=== PATIENT | male | born 1970 | race Caucasian/White ===

== ENCOUNTER 2016-10-14 19:29 | Emergency (ER) | payer MEDICAID ==
[~2016-10-14] VITALS: Ht 165.1 cm; Wt 73.0 kg
[2016-10-14 20:28] VITALS: BP 123/88
--- NOTE | 2016-10-14 21:29 | NUR ---
Patient going to [place] via wheelchair per tech--from lobby.
--- NOTE | 2016-10-14 21:54 | NUR ---
Patient back from [place] via wheelchair per tech--to bed 08.
--- NOTE | 2016-10-14 21:54 | NUR ---
PATIENT PRESENTS TO ED WITH C/O LEFT TESTICULAR PAIN X 3 DAYS . PT STATES NO TRAUMA TO THE AREA .PT DENIES N/V/D; SKIN IS PINK/WARM/DRY; AAOX4 WITH EVEN AND STEADY GAIT; LUNGS CLEAR BL; HR EVEN AND REGULAR; PT DENIES ANY FEVER, CP, SOB, OR COUGH AT THIS TIME; PATIENT STATES PAIN OF 10/10 AT THIS TIME; VSS; PATIENT POSITIONED FOR COMFORT; HOB ELEVATED; BEDRAILS UP X2; BED DOWN. ER MD MADE AWARE OF PT STATUS.
--- NOTE | 2016-10-14 22:32 | NUR ---
Dr. Nuñez evaluating patient at bedside.
--- NOTE | 2016-10-15 00:02 | NUR ---
Patient discharged with v/s stable. Written and verbal after care instructions given and explained. Patient verbalized understanding. Ambulatory with steady gait. All questions addressed prior to discharge. Advised to follow up with PMD.
[2016-10-15 00:03] VITALS: BP 127/79
== END 2016-10-15 00:02 | disposition home or self-care (01) ==
LOC: MED 19:29
DX: N43.40 Spermatocele of epididymis, unspecified (principal)
CPT/HCPCS: 76870; 81002; 99284; Q0092